=== PATIENT | male | born 1975 ===

== ENCOUNTER 2017-01-23 18:36 | Emergency (ER) | payer MEDICAID ==
[2017-01-23 19:30] VITALS: TEMP 98
[2017-01-23] MEDS ORDERED: Aspirin 325 mg EC Tablets PO STA (21:26)
[2017-01-23 21:55] LABS: BASO # 0.1 K/uL (0.0-0.2); BASO % 1.3 % (0.0-2.0); EOS # 0.2 K/uL (0.0-0.7); EOS % 3.2 % (0.0-4.0); HEMATOCRIT 41.6 % (35.0-51.0); LYMPH # 2.6 K/uL (1.0-4.3); LYMPH % 37.1 % (20.0-40.0); MEAN CELL VOLUME 82.4 fL (80.0-94.0); MEAN CORPUSCULAR HEMOGLOBIN 27.4 pg (27.0-31.0); MEAN CORPUSCULAR HGB CONC 33.2 g/dL (33.0-37.0); MEAN PLATELET VOLUME 10.7 fL (7.2-11.7); MONO # 0.3 K/uL (0.0-0.8); MONO % 4.9 % (0.0-10.0); RED CELL DISTRIBUTION WIDTH 13.5 % (11.5-14.5)
[2017-01-23 22:03] LABS: CHLORIDE 96 mmol/L (98-107); SODIUM 138 mmol/L (132-148)
[2017-01-23 22:04] LABS: PARTIAL THROMBOPLASTIN TIME 30 SECONDS (21-34); POTASSIUM 4.1 mmol/L (3.6-5.2)
[2017-01-23 22:05] LABS: GFR AFRICAN-AMERICAN > 60
[2017-01-23 22:06] LABS: ALB/GLOB RATIO 1.3 (1.0-2.1); ALKALINE PHOSPHATASE 48 U/L (38-126); AST/SGOT 50 U/L (17-59); BILIRUBIN,TOTAL 0.5 mg/dL (0.2-1.3); BLOOD UREA NITROGEN 13 mg/dL (9-20); CARBON DIOXIDE 30 mmol/L (22-30); TOTAL PROTEIN 7.2 g/dL (6.3-8.3)
[2017-01-23 22:07] LABS: ALT/SGPT 75 U/L (21-72); CALCIUM 9.9 mg/dl (8.6-10.4); GLUCOSE,RANDOM 194 mg/dL (75-110)
[2017-01-23] MEDS ORDERED: Aspirin 325 mg EC Tablets PO ONE (22:13)
--- NOTE | 2017-01-23 22:56 | C.PDOC ---
Time Seen by Provider: 01/23/17 21:18 Chief Complaint (Nursing): Chest Pain History Per: Patient Onset/Duration Of Symptoms: Days (few) Current Symptoms Are (Timing): Still Present Severity: Moderate Location Of Discomfort (Image): 1 - pain Quality: "Pain" Associated Symptoms: denies: Nausea, Dyspnea, Diaphoresis, Syncope Modifying Factors: Other Indicated Below Exacerbating Factors: Turning, Movement, Deep Breathing. denies: Exertion Additional History Per: Prior Records Past Medical History Reviewed: Historical Data, Nursing Documentation, Vital Signs Vital Signs: Last Vital Signs Temp 98 F 01/23/17 19:24 Pulse 80 01/23/17 19:24 Resp 14 01/23/17 19:24 BP 156/97 H 01/23/17 19:24 Pulse Ox 98 01/23/17 19:24 - Medical History PMH: Diabetes, HTN Family History: States: Unknown Family Hx - Social History Hx Tobacco Use: No Hx Alcohol Use: No Hx Substance Use: No - Immunization History Hx Tetanus Toxoid Vaccination: No Hx Influenza Vaccination: Yes Hx Pneumococcal Vaccination: No Review Of Systems Except As Marked, All Systems Reviewed And Found Negative. Constitutional: Negative for: Fever, Weakness Cardiovascular: Positive for: Chest Pain Respiratory: Negative for: Shortness of Breath, Hemoptysis Gastrointestinal: Negative for: Nausea, Vomiting, Abdominal Pain Musculoskeletal: Negative for: Neck Pain, Shoulder Pain, Back Pain, Leg Pain Skin: Negative for: Rash Neurological: Negative for: Weakness, Numbness, Seizures, Altered Mental Status Physical Exam - Physical Exam Appears: Non-toxic, No Acute Distress Skin: Normal Color, Warm, Dry, No Rash Head: Atraumatic, Normacephalic Eye(s): bilateral: PERRL, EOMI Neck: Normal ROM, Supple Chest: Symmetrical, No Deformity, Tenderness (left costosternal border), No Ecchymosis, No Subcutaneous Emphysema Cardiovascular: Rhythm Regular Respiratory: Normal Breath Sounds, No Accessory Muscle Use Gastrointestinal/Abdominal: Soft, No Tenderness Back: No CVA Tenderness Extremity: Normal ROM, No Pedal Edema, No Calf Tenderness Neurological/Psych: Oriented x3, Normal Motor, Normal Sensation ED Course And Treatment - Laboratory Results Result Diagrams: 01/23/17 21:44 01/23/17 21:44 Lab Interpretation: No Acute Changes ECG: Interpreted By Me, Viewed By Me ECG Rhythm: Sinus Rhythm ECG Interpretation: No Acute Changes Rate From EC O2 Sat by Pulse Oximetry: 98 Pulse Ox Interpretation: Normal - Radiology CXR: Interpreted by Me, Viewed By Me CXR Interpretation: Yes: No Acute Disease Progress - Interventions Interventions:: Observation - Medications Administered Oral: Aspirin - Data Reviewed Data Reviewed: Lab, Diagnostic imaging, EKG, Old records - Patient Status Patient status: Mostly improved - Continuity of Care Discussed patient case with:: Patient, ED Nurse - Patient Plan Patient Plan: Discharge, F/U with PCP, Continue present meds Disposition Counseled Patient/Family Regarding: Studies Performed, Diagnosis, Need For Followup, Rx Given - Disposition Referrals: Lilliam Lawrence MD [Staff Provider] - Disposition: HOME/ ROUTINE Disposition Time: 22:57 Condition: IMPROVED Additional Instructions: Follow up with your doctor within 1-2 days for further evaluation and treatment. Return to the ER if you develop shortness of breath, nausea, dizziness, worsening of symptoms or if you have any other concerns. Prescriptions: Aspirin [Ecotrin] 325 mg PO DAILY #30 tablet. Instructions: Chest Wall Pain (ED) - Clinical Impression Clinical Impression: Costochondral chest pain
[2017-01-23 23:40] VITALS: BP 136/75; PULSE 68; RESP 22; O2SAT 96
--- NOTE | 2017-01-24 08:21 | RAD ---
PROCEDURE: CHEST RADIOGRAPH, 1 VIEW HISTORY: chest pain COMPARISON: None available. FINDINGS: LUNGS: Clear. PLEURA: No pneumothorax or pleural fluid seen. CARDIOVASCULAR: Normal. OSSEOUS STRUCTURES: No significant abnormalities. VISUALIZED UPPER ABDOMEN: Normal. OTHER FINDINGS: None. IMPRESSION: No active disease.
== END 2017-01-23 23:25 | disposition home or self-care (01) ==
LOC: C.ER 18:36
DX: R07.1 Chest pain on breathing (principal)